=== PATIENT | female | born 2000 | race Caucasian/White ===

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

== ENCOUNTER 2021-01-06 15:53 | Outpatient (CLI) | payer OTHER, SELFPAY ==
[2021-01-06 16:57] VITALS: BP 134/73; PULSE 103
== END 2021-01-06 15:54 | disposition home or self-care (01) ==
PROVIDERS: PCP Internal Medicine; Visit Provider Obstetrics & Gynecology
DX: O36.8910 Maternal care for other specified fetal problems, first trimester, not applicable or unspecified (principal); Z3A.00 Weeks of gestation of pregnancy not specified
CPT/HCPCS: 59025

== ENCOUNTER 2021-03-14 11:46 | Observation (INO) | payer OTHER, SELFPAY ==
[2021-03-14 11:46] VITALS: BMI 41.4
[2021-03-14 12:02] VITALS: BP 143/87; PULSE 81
[2021-03-14 12:16] VITALS: BP 140/88; PULSE 81
--- NOTE | 2021-03-14 12:26 | OBADM ---
This patient, Rose Armas, admitted to the OB room OB Post 113 for observation. Patient/family oriented to hospital policies and general routines including ID bracelet, bed and alarms, visiting hours, pain management, procedures, bathroom and other care routines, personal items, smoking policy, room service/diet, and visiting hours. Patient/Family are encouraged to report perceived risks to care and to ask questions if they do not understand what they are told or what they should do.
[2021-03-14 12:29] LABS: Basophils Percent Auto 0.2 % (0.2-1.2); Eosinophils Absolute Auto 0.1 K/mm3 (0-0.3); Eosinophils Percent Auto 0.7 % (0-4.4); Hematocrit 34.8 % (37.0-47.0); Hemoglobin 11.1 g/dL (12.0-15.0); Immature Granulocyte Absolute 0.07 K/mm3 (0.00-0.031); Immature Granulocyte Percent A 0.6 % (0-0.5); Lymphocytes Absolute Auto 1.44 K/mm3 (0.9-3.2); Lymphocytes Percent Auto 13.3 % (18.3-44.2); Mean Corpuscular HGB Conc 31.9 g/dl (32-36); Mean Corpuscular Hemoglobin 24.8 pg (26-34); Mean Corpuscular Volume 77.9 fl (80-100); Mean Platelet Volume 10.2 fl (7.4-10.4); Monocytes Absolute Auto 0.6 K/mm3 (0.1-0.6); Monocytes Percent Auto 5.6 % (2.6-8.5); Neutrophils Absolute Auto 8.6 K/mm3 (1.3-6.7); Neutrophils Percent Auto 79.6 % (45.5-73.1); Platelet Count Result 254 k/mm3 (150-375); Red Blood Count 4.47 M/mm3 (4.2-5.4); Red Cell Distribution Width 14.9 % (11.5-14.5); White Blood Count 10.9 K/mm3 (4.5-10.0)
[2021-03-14 12:31] VITALS: BP 132/78; PULSE 89
[2021-03-14 12:45] LABS: Alanine Aminotransferase 16 U/L (4-35); Albumin Level 3.6 g/dL (3.7-5.6); Alkaline Phosphatase 181 U/L (45-116); Anion Gap 10 mmol/L (8-16); Aspartate Amino Transferase 19 U/L (14-36); Bilirubin,Total 0.3 mg/dL (0.2-1.3); Blood Urea Nitrogen 6 mg/dL (8-21); Calcium 8.9 mg/dL (8.9-10.7); Carbon Dioxide 18 mmol/L (22-30); Chloride 108 mmol/L (98-107); Estimated CRCL calculation 161 ml/min; Estimated Glomerular Filt Rate > 60; Glucose 91 mg/dL (65-110); Potassium 3.9 mmol/L (3.4-5.0); Sodium 136 mmol/L (134-143); Uric Acid 4.7 mg/dL (3.0-5.9)
[2021-03-14 12:46] VITALS: BP 104/68; PULSE 86
[2021-03-14 13:14] LABS: Creatinine Urine 138.9 mg/dL; Total Protein Urine Random 184 mg/dL; Ur Ttl Prot Creatinine Ratio 1.32 mg/mg (0-0.20)
[2021-03-14 13:27] LABS: Add Urine Microscopic? YES; Appearance Urine Cloudy (Clear); Bacteria Urine Trace /hpf; Bilirubin Urine Negative (Negative); Blood Urine 2+ (Negative); Color Urine Yellow (Yellow); Glucose Urine UA Negative (Negative); Ketones Urine Negative (Negative); Leukocyte Esterase Ur 1+ LEU/UL (NEGATIVE); Mucus Urine Heavy /lpf; Nitrate Urine Negative (Negative); Protein Urine 2+ mg/dL (Negative); RBC Urine >75 /hpf (0-2); Specific Grav Ur 1.021 (1.001-1.035); Squamous Epithelial Cell Urine Many /hpf (Few); Transitional Epi Cells Urine Rare /hpf (None Seen); Urobilinogen Urine Negative mg/dL (<2.0); WBC Urine 31-50 /hpf (0-3)
--- NOTE | 2021-03-14 13:56 | PC.NURSE ---
7982- spoke to Dr. Wren, headache better, reviewed urine results, orders for pt to see him within 48 hours, may discharge to home
--- NOTE | 2021-03-14 13:57 | PC.NURSE ---
1250- Dr. Wren on unit, updated on pt status, tracing reviewed, BP reviewed, labs reviewed, orders for 2 tablets of fioricet PO once now, may discharge to home if headache improves
--- NOTE | 2021-03-14 18:43 | PM.OBTRLD ---
OB - Triage/Final Diagnosis Visit Information Date of evaluation: 03/14/21 Reason for evaluation: other (headache) Comments/Additional reasons for admission: I have assessed the risk for this patient, Rose Armas, and determined that she would benefit from observation care. Evaluation Laboratory results: Laboratory Tests 03/14/21 03/14/21 03/14/21 12:14 12:14 12:14 WBC 10.9 H RBC 4.47 Hgb 11.1 L D Hct 34.8 L MCV 77.9 L MCH 24.8 L MCHC 31.9 L RDW 14.9 H Plt Count 254 MPV 10.2 Immature Gran % (Auto) 0.6 H Neut % (Auto) 79.6 H Lymph % (Auto) 13.3 L [place] % (Auto) 5.6 Eos % (Auto) 0.7 Baso % (Auto) 0.2 Lymph # (Auto) 1.44 [place] # (Auto) 0.6 Eos # (Auto) 0.1 Baso # (Auto) 0.0 Abs Immat Gran (auto) 0.07 H Absolute Neuts (auto) 8.6 H Absolute Nucleated RBC 0.0 Nucleated RBC % 0.0 Sodium 136 Potassium 3.9 Chloride 108 H Carbon Dioxide 18 L Anion Gap 10 BUN 6 L Creatinine 0.60 L Estim Creat Clear Calc 161 Estimated GFR > 60 Glucose 91 Uric Acid 4.7 Calcium 8.9 Total Bilirubin 0.3 AST 19 ALT 16 Alkaline Phosphatase 181 H Total Protein 7.0 Albumin 3.6 L Urine Color Yellow Urine Appearance Cloudy H Urine pH 7.0 Ur Specific [place] 1.021 Urine Protein 2+ H Urine Glucose (UA) Negative Urine Ketones Negative Ur Blood (Man) 2+ H Urine Nitrate Negative Urine Bilirubin Negative Urine Urobilinogen Negative Ur Leukocyte Esterase 1+ H Urine RBC >75 H Urine WBC 31-50 H Ur Squamous Epith Cells Many H Ur Transition Epith Cell Rare Urine Bacteria Trace Urine Mucus Heavy H U Random Total Protein Urine Creatinine Protein/Creat Ratio 2 03/14/21 12:14 WBC RBC Hgb Hct MCV MCH MCHC RDW Plt Count MPV Immature Gran % (Auto) Neut % (Auto) Lymph % (Auto) [place] % (Auto) Eos % (Auto) Baso % (Auto) Lymph # (Auto) [place] # (Auto) Eos # (Auto) Baso # (Auto) Abs Immat Gran (auto) Absolute Neuts (auto) Absolute Nucleated RBC Nucleated RBC % Sodium Potassium Chloride Carbon Dioxide Anion Gap BUN Creatinine Estim Creat Clear Calc Estimated GFR Glucose Uric Acid Calcium Total Bilirubin AST ALT Alkaline Phosphatase Total Protein Albumin Urine Color Urine Appearance Urine pH Ur Specific [place] Urine Protein Urine Glucose (UA) Urine Ketones Ur Blood (Man) Urine Nitrate Urine Bilirubin Urine Urobilinogen Ur Leukocyte Esterase Urine RBC Urine WBC Ur Squamous Epith Cells Ur Transition Epith Cell Urine Bacteria Urine Mucus U Random Total Protein 184 Urine Creatinine 138.9 Protein/Creat Ratio 2 1.32 H Vital signs: Vital Signs - 24 hr 03/14/21 12:02 03/14/21 12:16 03/14/21 12:31 Pulse Rate 81 81 89 Blood Pressure 143/87 H 140/88 132/78 03/14/21 12:46 Pulse Rate 86 Blood Pressure 104/68
== END 2021-03-14 14:40 | disposition home or self-care (01) ==
PROVIDERS: Admitting Provider Obstetrics & Gynecology; PCP Internal Medicine; Visit Provider Obstetrics & Gynecology
DX: O26.893 Other specified pregnancy related conditions, third trimester (principal); R51.9 Headache, unspecified; Z3A.37 37 weeks gestation of pregnancy
CPT/HCPCS: 36415; 59025; 80053; 81001; 82570; 84156; 84550; 85025; 87086; 87088; A9270; G0378; G0379

== ENCOUNTER 2021-03-17 06:00 | Inpatient (IN) | payer OTHER, SELFPAY ==
[2021-03-17] VITALS (226 sets, daily range): BP systolic 78–153; BP diastolic 36–123; PULSE 51–190; TEMP 36.1–36.8; O2SAT 76–100; BMI 41.8
[2021-03-17 06:52] LABS: Basophils Percent Auto 0.2 % (0.2-1.2); Eosinophils Absolute Auto 0.1 K/mm3 (0-0.3); Eosinophils Percent Auto 1.1 % (0-4.4); Hematocrit 34.3 % (37.0-47.0); Hemoglobin 10.7 g/dL (12.0-15.0); Immature Granulocyte Absolute 0.07 K/mm3 (0.00-0.031); Immature Granulocyte Percent A 0.8 % (0-0.5); Lymphocytes Absolute Auto 1.82 K/mm3 (0.9-3.2); Lymphocytes Percent Auto 19.9 % (18.3-44.2); Mean Corpuscular HGB Conc 31.2 g/dl (32-36); Mean Corpuscular Volume 80.1 fl (80-100); Mean Platelet Volume 10.3 fl (7.4-10.4); Monocytes Absolute Auto 0.5 K/mm3 (0.1-0.6); Monocytes Percent Auto 5.5 % (2.6-8.5); Neutrophils Absolute Auto 6.6 K/mm3 (1.3-6.7); Neutrophils Percent Auto 72.5 % (45.5-73.1); Platelet Count Result 264 k/mm3 (150-375); Red Blood Count 4.28 M/mm3 (4.2-5.4); Red Cell Distribution Width 15.2 % (11.5-14.5); White Blood Count 9.1 K/mm3 (4.5-10.0)
--- NOTE | 2021-03-17 06:52 | P.HP_ITS ---
H&P: HPI History of Present Illness Date/Time: 03/17/21 06:52 20-year-old 1 para 0 whose last menstrual period was 06/25/2020, EDC is 04/01/2021, confirmed by 10 week ultrasound presents at 39 weeks gestation for induction of labor secondary to elevated blood pressures. She is negative for group B strep. Her blood pressures have been rising and she now has 2+ protein. She had had some mild headaches but they have improved. Her diabetic screen was abnormal and 3/4 sugars on the 3hour test were abnormal. She has however had good control with diet proven by Accu-Cheks. Chief Complaint: elevated blood pressures at term and gestational diabetic con trolled by diet Review of Systems Review of Systems: All systems reviewed & are unremarkable except as noted in HPI and below PMFSH Past Medical History Medical History Depression Migraines UTI (urinary tract infection) Surgical History Surgical History No pertinent past surgical history Family History Family History Father Family history of thyroid disease Other Diabetes mellitus Family history of arthritis Family history of heart disease in male family member before age 55 Family history of kidney disease Hypertension Social History Social History Smoking status: Never smoker Second hand tobacco smoke exposure: Yes Alcohol intake: never Substance use: never Gender identity (if verbalized by the patient): Female Spiritual care concerns: No Meds Home Medications and Allergies Home Medications Medication Instructions Recorded Confirmed Type PNV no.[id number] acid 1 tablet PO DAILY 12/25/20 03/14/21 History Allergies Allergy/AdvReac Type Severity Reaction Status Date / Time No Known Allergies Allergy Unverified 07/23/19 21:53 Exam Const: General: no acute distress Eyes: General: appearance normal, both eyes and all related structures Neck: Neck: supple and no JVD Thyroid: thyroid normal Resp: Effort & Inspection: normal respiratory effort Auscultation: clear to auscultation bilaterally Cardio: Rate: regular rate Rhythm: regular rhythm GI: Inspection: non-distended GI Palp: Yes Soft to palpation, No Tenderness to palpation present (GI) and No Guarding due to palpation present (GI) Auscultation: normal bowel sounds : External Female Exam: normal external appearance Speculum Exam - Vagina: normal appearance of the vagina Speculum Exam - Cervix: Cervical os closed ( Cervix 3/50%/ -1. AROM clear. FHTs reassuring) Skin: General skin exam: no rashes or lesions noted Extrem: General: normal to inspection and no edema Psych: Mental Status: mental status grossly normal Affect: normal affect Assessment and Plan Additional Plan impression: Term term with diet-controlled gestational diabetes and elevated blood pressures Plan PIH labs will be drawn. Medical induction of labor was undertaken. Sugars will be checked. She has an epidural candidate
[2021-03-17 06:58] LABS: Glucose Point of Care 130 mg/dl (65-105)
[2021-03-17] MEDS: LACTATED RINGERS 1,000 ML 125 ML IV CONT ×2 (07:08→09:26)
[2021-03-17] MEDS: OXYTOCIN 30 UNITS/NS 500 ML 30 UNITS/500 ML BAG 6 UNITS IV CONT (07:09)
--- NOTE | 2021-03-17 07:23 | LDADM ---
This patient, Rose Armas, was admitted to Labor/Delivery/Recovery 104 on 03/17/21 at 06:00. Plans for labor, pain management and were discussed with patient. Patient/family oriented to hospital policies and general routines including ID bracelet, bed and alarms, visiting hours, pain management, procedures, bathroom and other care routines, personal items, smoking policy, room service/diet and guest tray routines, security routines, and visiting hours. Patient/Family are encouraged to report perceived risks to care and to ask questions if they do not understand what they are told or what they should do. See OBIX for further documentation.
[2021-03-17 07:49] LABS: Alanine Aminotransferase 15 U/L (4-35); Albumin Level 3.6 g/dL (3.7-5.6); Alkaline Phosphatase 161 U/L (45-116); Anion Gap 8 mmol/L (8-16); Aspartate Amino Transferase 20 U/L (14-36); Bilirubin,Total 0.5 mg/dL (0.2-1.3); Blood Urea Nitrogen 11 mg/dL (8-21); Calcium 9.3 mg/dL (8.9-10.7); Carbon Dioxide 22 mmol/L (22-30); Chloride 106 mmol/L (98-107); Estimated CRCL calculation 100 ml/min; Estimated Glomerular Filt Rate > 60; Glucose 103 mg/dL (65-110); Potassium 3.7 mmol/L (3.4-5.0); Sodium 136 mmol/L (134-143); Uric Acid 5.2 mg/dL (3.0-5.9)
--- NOTE | 2021-03-17 09:25 | WPDANESEPP ---
Anes - Eval Pre Procedure Date/Time: 03/17/21 09:25 Pre Op Diagnosis: iol Patient Data Age: 20 Gender: F Height: 1.65 m Weight: 114 kg Last Vital Signs Temp 36.3 C L 03/17/21 09:09 Pulse 85 03/17/21 09:23 BP 128/68 03/17/21 09:23 Pulse Ox 100 03/17/21 09:22 Allergies Allergy/AdvReac Type Severity Reaction Status Date / Time No Known Allergies Allergy Unverified 07/23/19 21:53 Home Medications Medication Instructions Recorded Confirmed Type PNV no.[id number] acid 1 tablet PO DAILY 12/25/20 03/17/21 History Laboratory Tests 03/17/21 03/17/21 03/17/21 06:44 06:44 06:45 WBC 9.1 K/mm3 K/mm3 (4.5-10.0) RBC 4.28 M/mm3 M/mm3 (4.2-5.4) Hgb 10.7 g/dL L g/dL (12.0-15.0) Hct 34.3 % L % (37.0-47.0) MCV 80.1 fl fl (80-100) MCH 25.0 pg L pg (26-34) MCHC 31.2 g/dl L g/dl (32-36) RDW 15.2 % H % (11.5-14.5) Plt Count 264 k/mm3 k/mm3 (150-375) MPV 10.3 fl fl (7.4-10.4) Immature Gran % (Auto) 0.8 % H % (0-0.5) Neut % (Auto) 72.5 % % (45.5-73.1) Lymph % (Auto) 19.9 % % (18.3-44.2) [place] % (Auto) 5.5 % % (2.6-8.5) Eos % (Auto) 1.1 % % (0-4.4) Baso % (Auto) 0.2 % % (0.2-1.2) Lymph # (Auto) 1.82 K/mm3 K/mm3 (0.9-3.2) [place] # (Auto) 0.5 K/mm3 K/mm3 (0.1-0.6) Eos # (Auto) 0.1 K/mm3 K/mm3 (0-0.3) Baso # (Auto) 0.0 K/mm3 K/mm3 (0.0-0.1) Abs Immat Gran (auto) 0.07 K/mm3 H K/mm3 (0.00-0.031) Absolute Neuts (auto) 6.6 K/mm3 K/mm3 (1.3-6.7) Absolute Nucleated RBC 0.0 K/mm3 K/mm3 (0.0-0.012) Nucleated RBC % 0.0 % % (0.0-0.2) Sodium Potassium Chloride Carbon Dioxide Anion Gap BUN Creatinine Estim Creat Clear Calc Estimated GFR Glucose POC Capillary Glucose Uric Acid Calcium Total Bilirubin AST ALT Alkaline Phosphatase Total Protein Albumin RPR Pending Blood Type AB Negative Antibody Screen Negative 03/17/21 03/17/21 06:53 07:15 WBC RBC Hgb Hct MCV MCH MCHC RDW Plt Count MPV Immature Gran % (Auto) Neut % (Auto) Lymph % (Auto) [place] % (Auto) Eos % (Auto) Baso % (Auto) Lymph # (Auto) [place] # (Auto) Eos # (Auto) Baso # (Auto) Abs Immat Gran (auto) Absolute Neuts (auto) Absolute Nucleated RBC Nucleated RBC % Sodium 136 mmol/L mmol/L (134-143) Potassium 3.7 mmol/L mmol/L (3.4-5.0) Chloride 106 mmol/L mmol/L (98-107) Carbon Dioxide 22 mmol/L mmol/L (22-30) Anion Gap 8 mmol/L mmol/L (8-16) BUN 11 mg/dL D mg/dL (8-21) Creatinine 0.70 mg/dL mg/dL (0.7-1.0) Estim Creat Clear Calc 100 ml/min ml/min Estimated GFR > 60 (59 - ) Glucose 103 mg/dL mg/dL (65-110) POC Capillary Glucose 130 mg/dl H mg/dl (65-105) Uric Acid 5.2 mg/dL mg/dL (3.0-5.9) Calcium 9.3 mg/dL mg/dL (8.9-10.7) Total Bilirubin 0.5 mg/dL mg/dL (0.2-1.3) AST 20 U/L U/L (14-36) ALT 15 U/L U/L (4-35) Alkaline Phosphatase 161 U/L H U/L (45-116) Total Protein 7.0 g/dL g/dL (6.3-8.6) Albumin 3.6 g/dL L g/dL (3.7-5.6) RPR Blood Type Antibody Screen Patient hx anesthesia problems: none Family hx anesthesia problems: none Results Review: All pre-operative results and documents have been reviewed as p
[2021-03-17 10:44] LABS: Glucose Point of Care 84 mg/dl (65-105)
--- NOTE | 2021-03-17 12:07 | PM.OBPNLAB ---
Pain Control Date/time seen: 03/17/21 12:07 Pain control: tolerating well and epidural Pelvic Exam Dilation (cm): 5 station: -1 Amniotic membrane status: Leaking Contractions Monitor mode: External
[2021-03-17] MEDS: ACETAMINOPHEN 500 MG TABLET 1000 MG PO (12:46)
[2021-03-17 13:30] LABS: Glucose Point of Care 75 mg/dl (65-105)
[2021-03-17] MEDS: LORATADINE 10 MG TABLET PO (13:47)
[2021-03-17 15:41] LABS: Glucose Point of Care 71 mg/dl (65-105)
--- NOTE | 2021-03-17 16:10 | PM.OBPNLAB ---
Pain Control Date/time seen: 03/17/21 16:10 Pain control: tolerating well and epidural Pelvic Exam Dilation (cm): 7 Effacement (%): 75 station: -1 Amniotic membrane status: Leaking Contractions Monitor mode: External
[2021-03-17 17:46] LABS: Glucose Point of Care 70 mg/dl (65-105)
[2021-03-17 20:07] LABS: Glucose Point of Care 67 mg/dl (65-105)
--- NOTE | 2021-03-17 21:37 | PM.OBPRVD ---
OB - Delivery Note Procedure Delivery date: 03/17/21 Procedure: mil events: Induced HTN and Labor Induction Intrapartal events: None Induction method: AROM Delivery monitor: external FHT Route of delivery: Laceration Description: None Specimen: No Quantitative Blood Loss (ml): 58 Anesthesia type: Epidural Disposition: floor Baby Date of : 03/17/21 Time of : 21:26 Weeks of gestation at delivery: 38 gender: Male Weight (pounds): 9 Weight (ounces): 1 presentation: vertex position: Right Occiput Anterior Placenta delivery description: Spontaneous score one minute: 8 score five minutes: 9
[2021-03-17] MEDS: OXYTOCIN 30 UNITS/NS 500 ML 30 UNITS/500 ML BAG 125 UNITS IV CONT (22:08)
[2021-03-17] MEDS: IBUPROFEN 600 MG TABLET PO (23:07)
[2021-03-17] MEDS: WITCH HAZEL 40 PADS 1 PAD TOPICAL (23:08)
[2021-03-17] MEDS: BENZOCAINE 20% AER SPR (*SP) 56 GM CAN 1 SPRAY TOPICAL (23:08)
[2021-03-18] VITALS (7 sets, daily range): BP systolic 128–143; BP diastolic 68–96; PULSE 83–100; RESP 16–18; TEMP 36.1–37.2; O2SAT 97–99
--- NOTE | 2021-03-18 00:25 | OBPPTRN ---
Patient transferred to post room #285 via wheelchair. Support person present. Oriented to unit, room, information board, rooming in, admission packet and security measures. Patient verbalizes understanding.
[2021-03-18 05:30] LABS: Hematocrit 32.6 % (37.0-47.0); Hemoglobin 10.3 g/dL (12.0-15.0)
--- NOTE | 2021-03-18 08:40 | WPDANLDPN2 ---
Anes-Prog Note L&D Date/Time: 03/18/21 08:40 Comfortable throughout: labor and delivery Neuraxial method: epidural Epidural/Spinal procedure site: clean & non-tender Neuro status: Neuro function grossly intact. Cardiovascular status: normal Respiratory status: normal Airway patency: baseline Mental status: baseline Post-Op hydration status: normal Vital Signs: Last Vital Signs Temp 36.1 C L 03/18/21 04:30 Pulse 86 03/18/21 04:30 Resp 18 03/18/21 04:30 BP 128/68 03/18/21 04:30 Pulse Ox 99 03/18/21 04:30 Pain score (VAS): 06/27 I/O: Intake & Output 03/17/21 03/18/21 03/18/21 23:59 07:59 15:59 Intake Total 1500 300 Output Total 93 400 Balance 1407 -100 Post-procedural complaints: none Patient feedback: Patient satisfied with anesthetic care.
--- NOTE | 2021-03-18 09:41 | PM.OBPNVD ---
OB - PN: Subj Subjective Date/time seen: 03/18/21 09:41 Patient comments: no complaints and pain well controlled baby status: doing well OB - PN: Obj Data Labs CBC & Chem 7: 03/18/21 04:47 03/17/21 07:15 Labs: Laboratory Results - last 24 hr 03/17/21 03/17/21 03/17/21 10:41 13:27 15:39 Hgb Hct POC Capillary Glucose 84 75 71 Blood Type Antibody Screen Screen Baby's Blood Type Baby's KEM Doses of RhIg Required 03/17/21 03/17/21 03/18/21 17:43 20:00 04:47 Hgb 10.3 L Hct 32.6 L POC Capillary Glucose 70 67 Blood Type Antibody Screen Screen Baby's Blood Type Baby's KEM Doses of RhIg Required 03/18/21 04:47 Hgb Hct POC Capillary Glucose Blood Type AB Negative Antibody Screen TNP Screen Negative Baby's Blood Type B pos Baby's KEM Negative Doses of RhIg Required 1 OB - PN A/P Plan day: 1 Plan: routine care Time Spent With Patient Time: Total time spent is greater than 50% in coordination of care (as documented) at patient's floor/unit and/or counseling patient: Time with patient: less than 15 minutes Review of Systems Review of Systems: All systems reviewed & are unremarkable except as noted in HPI and below Exam Const: General: no acute distress Eyes: General: appearance normal, both eyes and all related structures Neck: Neck: supple and no JVD Thyroid: thyroid normal Resp: Effort & Inspection: normal respiratory effort Auscultation: clear to auscultation bilaterally Cardio: Rate: regular rate Rhythm: regular rhythm GI: Inspection: non-distended GI Palp: Yes Soft to palpation, No Tenderness to palpation present (GI) and No Guarding due to palpation present (GI) Auscultation: normal bowel sounds : General: Yes bladder normal to palpation External Female Exam: normal external appearance Speculum Exam - Vagina: normal vaginal discharge and No vaginal bleeding Speculum Exam - Cervix: nontender Bimanual exam- vagina & uterus: bladder normal to palpation and No Cervical tenderness present OB/external & speculum: No vaginal bleeding Skin: General skin exam: no rashes or lesions noted Extrem: General: normal to inspection and no edema Psych: Mental Status: mental status grossly normal Affect: normal affect
--- NOTE | 2021-03-18 10:22 | PC.NURSE ---
Breast pump provided due to not feeding at the breast. Mom states is very sleepy at the breast and she would like to try pumping for now. Encouraged mom to call with next feeding to try to get to breast if she would like to do that. Instructions given on breast pump care and usage, pumping schedule, nipple care, and collection and storage of breast milk. Encouraged [id number], breast massage and manual expression to stimulate supply. Pumping log provided and reviewed. Assessed patient for correct flange size, placement and draw. Patient verbalizes and demonstrates understanding of instructions.
[2021-03-18 11:03] LABS: Rapid Plasma Reagin Non-Reactive (NonReactive)
[2021-03-18] MEDS: RHO(D) IMMUNE GLOBULIN 300 MCG/2 ML SYRINGE IM (13:54)
[2021-03-19] MEDS: IBUPROFEN 600 MG TABLET PO (01:20)
[2021-03-19] MEDS: TETANUS,DIPHTHERIA,AC PERTUSSIS ADULT (0.5 ML) BOOSTRIX IM (01:21)
[2021-03-19 04:40] VITALS: BP 136/84; PULSE 79; RESP 18; TEMP 36.8; O2SAT 98
--- NOTE | 2021-03-19 07:06 | PM.DS ---
DS: Admitting Diagnosis Discharge Date 03/19/2021 Admitting Diagnosis term intrauterine with gestational hypertension DS: Summary Hospital Course Hospital Course: patient was admitted for induction of labor secondary to gestational hypertension with diet-controlled gestational diabetes. Her sugars remained completely normal. Her blood pressures improved with epidural anesthesia and were normal . She spontaneously delivered a male infant which was unremarkable. Her hospital course remained unremarkable. She was up, voiding without difficulty, breast-feeding, ambulating, and generally without complaints Time Spent with Patient Time attestation: Total time spent providing and/or coordinating discharge services: Exam Const: General: no acute distress Eyes: General: appearance normal, both eyes and all related structures Neck: Neck: supple and no JVD Thyroid: thyroid normal Resp: Effort & Inspection: normal respiratory effort Auscultation: clear to auscultation bilaterally Cardio: Rate: regular rate Rhythm: regular rhythm GI: Inspection: non-distended GI Palp: Yes Soft to palpation, No Tenderness to palpation present (GI) and No Guarding due to palpation present (GI) Auscultation: normal bowel sounds : General: Yes bladder normal to palpation External Female Exam: normal external appearance Speculum Exam - Vagina: normal vaginal discharge and No vaginal bleeding Speculum Exam - Cervix: nontender Bimanual exam- vagina & uterus: bladder normal to palpation and No Cervical tenderness present OB/external & speculum: No vaginal bleeding Skin: General skin exam: no rashes or lesions noted Extrem: General: normal to inspection and no edema Psych: Mental Status: mental status grossly normal Affect: normal affect DS: Data Data Completed and Pending Labs on day of discharge: Labs from last 24 hours 03/18/21 03/17/21 04:47 06:44 RPR Non-reactive Blood Type AB Negative Antibody Screen TNP Screen Negative Baby's Blood Type B pos Baby's KEM Negative Doses of RhIg Required 1 Discharge Plan Discharge Attending physician on discharge: Jaime Wren Discharging Clinician: Jaime Wren Patient Disposition: Home, Self-Care Activity: may shower, no straining and pelvic rest Diet: heart healthy Patient Instructions: Antibiotic Form Stand Alone Forms: General Discharge Information Follow-up/Referrals: Jaime Wren MD [Physician] - Discharge Medications: Continued PNV [id number] acid [id number] mg-mcg Tablet 1 tablet PO DAILY RF: 0 Date of admission: 03/17/21 06:00 Primary Care Provider: Franck Lopez Admitting Provider: Jaime Wren Attending physician on admission: Jaime Wren Condition: Stable
--- NOTE | 2021-03-19 07:08 | PM.OBPNVD ---
OB - PN: Subj Subjective Date/time seen: 03/19/21 07:08 Patient comments: no complaints and pain well controlled baby status: doing well and nursing well OB - PN: Obj Data Labs CBC & Chem 7: 03/18/21 04:47 03/17/21 07:15 Labs: Laboratory Results - last 24 hr 03/17/21 03/18/21 06:44 04:47 RPR Non-reactive Blood Type AB Negative Antibody Screen TNP Screen Negative Baby's Blood Type B pos Baby's KEM Negative Doses of RhIg Required 1 OB - PN A/P Plan day: 2 Plan: routine care, discharge home and follow up 6 weeks Time Spent With Patient Time: Total time spent is greater than 50% in coordination of care (as documented) at patient's floor/unit and/or counseling patient: Time with patient: less than 15 minutes Review of Systems Review of Systems: All systems reviewed & are unremarkable except as noted in HPI and below Exam Const: General: no acute distress Eyes: General: appearance normal, both eyes and all related structures Neck: Neck: supple and no JVD Thyroid: thyroid normal Resp: Effort & Inspection: normal respiratory effort Auscultation: clear to auscultation bilaterally Cardio: Rate: regular rate Rhythm: regular rhythm GI: Inspection: non-distended GI Palp: Yes Soft to palpation, No Tenderness to palpation present (GI) and No Guarding due to palpation present (GI) Auscultation: normal bowel sounds : General: Yes bladder normal to palpation External Female Exam: normal external appearance Speculum Exam - Vagina: normal vaginal discharge and No vaginal bleeding Speculum Exam - Cervix: nontender Bimanual exam- vagina & uterus: bladder normal to palpation and No Cervical tenderness present OB/external & speculum: No vaginal bleeding Skin: General skin exam: no rashes or lesions noted Extrem: General: normal to inspection and no edema Psych: Mental Status: mental status grossly normal Affect: normal affect
[2021-03-19 08:05] VITALS: BP 120/78; PULSE 73; RESP 16; TEMP 36.8; O2SAT 98
[2021-03-21 10:11] VITALS: BP 128/68; PULSE 86; RESP 20; TEMP 36.9; O2SAT 100
== END 2021-03-19 12:07 | disposition home or self-care (01) | DRG 560 ==
LOC: ANHLDR 06:04 → ANHOB2 03-18 00:45
PROVIDERS: Admitting Provider Obstetrics & Gynecology; PCP Internal Medicine; Visit Provider Obstetrics & Gynecology
DX: O13.4 Gestational [pregnancy-induced] hypertension without significant proteinuria, complicating childbirth (principal); O99.214 Obesity complicating childbirth; E66.01 Morbid (severe) obesity due to excess calories; O76 Abnormality in fetal heart rate and rhythm complicating labor and delivery; O24.420 Gestational diabetes mellitus in childbirth, diet controlled; Z3A.39 39 weeks gestation of pregnancy; Z37.0 Single live birth; Z3A.38 38 weeks gestation of pregnancy
CPT/HCPCS: 36415; 80053; 82948; 84550; 85014; 85018; 85025; 85461; 86592; 86850; 86900; 86901; 90384; 90715; A9270; J2590; J2790; J2795; J7120

== ENCOUNTER 2021-05-19 10:55 | Emergency (ER) | payer OTHER, SELFPAY ==
[2021-05-19 11:09] VITALS: BP 127/82; PULSE 90; RESP 16; TEMP 36.9; O2SAT 99
--- NOTE | 2021-05-19 11:35 | ED.URI ---
HPI - URI/Sore Throat General Chief Complaint: Upper Respiratory Infection Stated Complaint: Sore Throat Time Seen by Provider: 05/19/21 11:35 Source: patient and RN notes reviewed Mode of arrival: ambulatory Limitations: no limitations History of Present Illness HPI Narrative: 20-year-old female presents to the [facility] with complaints of a sore throat. Patient states that she has had a runny nose and a mild cough for 3 to 4 days. Sore throat just started today. States she is taken ibuprofen for symptoms. States that she has felt feverish but when she checked her temperature it was normal. Denies chest pain or abdominal pain. No nausea, vomiting or diarrhea. Related Data Home Medications Medication Instructions Recorded Confirmed No Home Medications 05/20/21 05/20/21 Allergies Allergy/AdvReac Type Severity Reaction Status Date / Time No Known Allergies Allergy Unverified 07/23/19 21:53 Review of Systems Review of Systems: All systems reviewed & are unremarkable except as noted in HPI and below Constitutional: Constitutional: Reports no additional constitutional complaints, Denies chills and Denies fever(s) Eyes: Eyes: Reports no additional eye complaints, Denies change in vision and Denies photophobia ENT: Reports as per HPI, Reports nasal congestion and Reports sore throat Comments: Rhinorrhea Cardiovascular: Cardiovascular: Reports no additional cardiovascular complaints and Denies chest pain Respiratory: Respiratory: Reports no additional respiratory complaints, Denies cough and Denies dyspnea Gastrointestinal: Gastrointestinal: Reports no additional gastrointestinal complaints Musculoskeletal: Musculoskeletal: Reports no additional musculoskeletal complaints Integumentary/Breasts: Skin/Breast: Reports system reviewed and no additional complaints, except as docu, Denies erythema and Denies rash Neurologic: Reports system reviewed and no additional complaints, except as documented Psychiatric: Psychiatric: Reports no additional psychiatric complaints Allergic/Immunologic: Allergic/Immunologic: Reports no additional allergic/immunologic complaints [facility] Past Medical History Medical History Depression Diabetes in HTN in , chronic Migraines UTI (urinary tract infection) Surgical History Surgical History No pertinent past surgical history Family History Family History Father Family history of thyroid disease Other Diabetes mellitus Family history of arthritis Family history of heart disease in male family member before age 55 Family history of kidney disease Hypertension Social History Social History Smoking status: Never smoker Second hand tobacco smoke exposure: Yes Alcohol intake: never Substance use: never Gender identity (if verbalized by the patient): Female Spiritual care concerns: No Comments At the time of my signature, I reviewed and agree with the nursing past medical, surgical, social, and family history. There is no relevant family history pertinent to the patient complaint. Exam Const: General: healthy appearing, no acute distress and alert Nutritional Appearance: well nourished and obese morbidly obese Orientation/consciousness: patient oriented x3 Limitations: no limitations HENMT: Head: normal to inspection Ears: external ears normal, TM's normal bilaterally and EAC's normal General nose exam: Normal external nose present and Normal nasal mucous membranes and turbinates present Throat: uvula midline and postnasal drainage Eyes: Conjunctivae: conjunctivae normal Pupils: Equal, round and reactive pupils present Neck: Neck: normal visual inspection, no lymphadenopathy and no meningeal signs Chest: Chest
== END 2021-05-19 12:27 | disposition home or self-care (01) ==
PROVIDERS: Emergency Provider Nurse Practitioner; PCP Internal Medicine
DX: J02.9 Acute pharyngitis, unspecified (principal); E11.9 Type 2 diabetes mellitus without complications; I10 Essential (primary) hypertension
CPT/HCPCS: 87081; 87880; 99213; G0463

== ENCOUNTER 2021-12-08 10:26 | Outpatient (CLI) | payer OTHER, SELFPAY ==
[2021-12-08 10:45] LABS: Basophils Percent Auto 0.2 % (0.2-1.2); Eosinophils Percent Auto 0.3 % (0-4.4); Hematocrit 42.6 % (37.0-47.0); Hemoglobin 14.1 g/dL (12.0-15.0); Immature Granulocyte Absolute 0.03 K/mm3 (0.00-0.031); Immature Granulocyte Percent A 0.2 % (0-0.5); Lymphocytes Percent Auto 11.6 % (18.3-44.2); Mean Corpuscular HGB Conc 33.1 g/dl (32-36); Mean Corpuscular Hemoglobin 26.4 pg (26-34); Mean Corpuscular Volume 79.6 fl (80-100); Mean Platelet Volume 9.1 fl (7.4-10.4); Monocytes Absolute Auto 0.7 K/mm3 (0.1-0.6); Monocytes Percent Auto 5.5 % (2.6-8.5); Neutrophils Absolute Auto 9.9 K/mm3 (1.3-6.7); Neutrophils Percent Auto 82.2 % (45.5-73.1); Platelet Count Result 320 k/mm3 (150-375); Red Blood Count 5.35 M/mm3 (4.2-5.4); Red Cell Distribution Width 13.2 % (11.5-14.5); White Blood Count 12.1 K/mm3 (4.5-10.0)
[2021-12-08 10:51] LABS: Appearance Urine Clear (Clear); Bilirubin Urine Negative (Negative); Blood Urine 2+ (Negative); Color Urine Yellow (Yellow); Glucose Urine UA Negative (Negative); Ketones Urine Negative (Negative); Leukocyte Esterase Ur Negative LEU/UL (Negative); Nitrate Urine Negative (Negative); Protein Urine Negative (Negative); Specific Grav Ur 1.025 (1.001-1.035); Urobilinogen Urine 0.2 mg/dL (<2.0)
[2021-12-08 10:55] LABS: Alanine Aminotransferase 28 U/L (6-35); Albumin Level 4.8 g/dL (3.5-5.1); Alkaline Phosphatase 77 U/L (38-126); Anion Gap 8 mmol/L (8-16); Aspartate Amino Transferase 20 U/L (14-36); Bilirubin,Total 0.5 mg/dL (0.2-1.3); Blood Urea Nitrogen 12 mg/dL (7-17); Carbon Dioxide 26 mmol/L (22-30); Chloride 106 mmol/L (98-107); Cholesterol 146 mg/dL (0-200); Estimated Glomerular Filt Rate > 60; Glucose 89 mg/dL (65-110); HDL Direct 42 mg/dL; Potassium 4.2 mmol/L (3.4-5.0); Sodium 140 mmol/L (137-145); Triglycerides 114 mg/dL (<150)
[2021-12-08 10:59] LABS: Bacteria Urine Trace /hpf; Mucus Urine Rare /lpf; RBC Urine 0-2 /hpf (0-2); Squamous Epithelial Cell Urine Few /hpf (Few)
[2021-12-08 11:02] LABS: Add Urine Microscopic? YES
[2021-12-08 11:06] LABS: LDL Cholesterol Direct 72 mg/dL
[2021-12-08 11:09] LABS: Iron 37 ug/dL (37-170)
[2021-12-08 11:18] LABS: Percent Iron Saturation 9 % (20-50)
== END 2021-12-08 10:27 | disposition home or self-care (01) ==
LOC: ANHLAB 10:28
PROVIDERS: PCP Internal Medicine; Visit Provider Clinical Nurse Specialist
DX: R42 Dizziness and giddiness (principal); Z13.220 Encounter for screening for lipoid disorders; R35.89 Other polyuria; D64.9 Anemia, unspecified; R73.9 Hyperglycemia, unspecified
CPT/HCPCS: 36415; 80053; 80061; 81001; 82728; 83036; 83540; 83550; 84443; 85025

== ENCOUNTER 2022-11-13 11:34 | Emergency (ER) | payer OTHER, SELFPAY ==
[2022-11-13 11:45] VITALS: BP 123/95; PULSE 98; RESP 16; TEMP 36.5; O2SAT 98
--- NOTE | 2022-11-13 11:45 | ED.EYEPROB ---
HPI - Eye Problem General Chief complaint: Eye Problems Stated complaint: EYE REDNESS Source: patient, family and RN notes reviewed History of Present Illness HPI Narrative: 22-year-old female presents urgent care with left eye irritation and drainage. Patient states her son was diagnosed with pinkeye and an ear infection earlier this week and believes she contracted the pinkeye from him. Patient states she woke up this morning with matting to her left eye. Patient reports irritation to her lower lid. Denies any visual disturbance Or eye pain. Patient does report having a fever last couple days the slight headache. Denies any chest pain, shortness of breath, sore throat, ear pain, vomiting, or diarrhea. Related Data Allergies Allergy/AdvReac Type Severity Reaction Status Date / Time No Known Allergies Allergy Unverified 12/08/21 09:02 Review of Systems Review of Systems: CONSTITUTIONAL: Denies fever, chills, or sweats. EYES: The left eye drainage and irritation ENT: Denies otalgia and sore throat CARDIOVASCULAR: Denies chest pain, palpitations, or edema. RESPIRATORY: Denies cough or dyspnea. GASTROINTESTINAL: Denies abdominal pain, nausea, vomiting, or diarrhea. GENITOURINARY: Denies dysuria or hematuria. SKIN: Denies rash or itching. MUSCULOSKELETAL: Denies back pain, joint pain, or myalgia. NEUROLOGIC: Denies headache, numbness, or weakness. Pertinent positives per HPI. [facility] Past Medical History Medical History Depression Diabetes in HTN in , chronic Migraines UTI (urinary tract infection) Surgical History Surgical History No pertinent past surgical history Family History Family History Father Family history of thyroid disease Other Diabetes mellitus Family history of arthritis Family history of heart disease in male family member before age 55 Family history of kidney disease Hypertension Social History Social History Smoking status: Never smoker Second hand tobacco smoke exposure: Yes Alcohol intake: never Substance use: never Gender identity (if verbalized by the patient): Female Spiritual care concerns: No Comments At the time of my signature, I reviewed and agree with the nursing past medical, surgical, social, and family history. There is no relevant family history pertinent to the patient complaint. Exam Narrative: GENERAL: This is a well-nourished, well-developed patient, in no apparent distress. HEAD: normocephalic, atraumatic. EYES: PERRL. left sclera mildly erythemic. Left lower conjunctivae noted to be injected with dry drainage the lashes. EARS: External ears normal, auditory canals clear and without drainage, TMs normal without perforation. Hearing grossly intact. NOSE: External nose normal with no obvious nasal discharge, nares without redness, no rhinorrhea. THROAT: Mucous membranes moist, posterior pharynx clear. NECK: Neck supple, non-tender without lymphadenopathy, masses or thyromegaly. CARDIOVASCULAR: Regular rate. RESPIRATORY: no respiratory distress SKIN: warm, intact with no suspicious lesions or rash, good texture and turgor. NEURO: awake, alert, and oriented to person, place and time. There were no obvious focal neurologic abnormalities. Course Course Level of Care: Express Care Visit Vital Signs Vital signs: Reviewed MDM - Eye Problem MDM Narrative Medical decision making narrative: Your exam today shows Conjunctivitis, You have been given a prescription for eye drops. Use the eye drops as instructed. If you are not better in two (2) days, you need to follow up with an mixing and molding machine operator. Do not rub the eye or put anything else in the eye, this can cause abrasions (scratches) on the eye o
== END 2022-11-13 11:59 | disposition home or self-care (01) ==
PROVIDERS: Emergency Provider Nurse Practitioner Family; PCP Internal Medicine
DX: H10.9 Unspecified conjunctivitis (principal)
CPT/HCPCS: 99213; G0463

== ENCOUNTER 2023-02-12 17:54 | Emergency (ER) | payer OTHER, SELFPAY ==
[2023-02-12 18:06] VITALS: BP 118/81; PULSE 87; RESP 16; TEMP 36.4; O2SAT 97
--- NOTE | 2023-02-12 18:10 | ED.GENADULT ---
HPI - General Adult General Chief complaint: Extremity Injury, Upper Stated complaint: Split right hand Time Seen by Provider: 02/12/23 18:10 Source: patient, RN notes reviewed and old records reviewed Mode of arrival: ambulatory Limitations: no limitations History of Present Illness HPI narrative: 22-year-old female presents to the [facility] with complaints of a laceration to the lateral aspect right hand at the MCP 5th finger. Bleeding controlled States that she was cleaning a glass when it broke in her hand. Mom and patient reports she is up-to-date on Tdap, believes it was 2 years ago Per medical record Tdap 03/19/21 Onset (ago): hour(s) (1) Treatments prior to arrival: none Related Data Home Medications Medication Instructions Recorded Confirmed No Home Medications 02/12/23 02/12/23 Allergies Allergy/AdvReac Type Severity Reaction Status Date / Time No Known Allergies Allergy Verified 02/12/23 18:19 Review of Systems Review of Systems: All systems reviewed & are unremarkable except as noted in HPI and below Constitutional: Constitutional: Reports no additional constitutional complaints Eyes: Eyes: Reports no additional eye complaints ENT: Reports system reviewed and no additional complaints, except as documented Cardiovascular: Cardiovascular: Reports no additional cardiovascular complaints, Denies chest pain and Denies dyspnea Respiratory: Respiratory: Reports no additional respiratory complaints, Denies chest congestion, Denies cough and Denies dyspnea Gastrointestinal: Gastrointestinal: Reports no additional gastrointestinal complaints, Denies abdominal pain, Denies nausea and Denies vomiting Musculoskeletal: Musculoskeletal: Reports no additional musculoskeletal complaints Integumentary/Breasts: Skin/Breast: Reports as per HPI and Reports wounds Neurologic: Reports system reviewed and no additional complaints, except as documented Psychiatric: Psychiatric: Reports no additional psychiatric complaints Allergic/Immunologic: Allergic/Immunologic: Reports no additional allergic/immunologic complaints [facility] Past Medical History Medical History Depression Diabetes in HTN in , chronic Migraines UTI (urinary tract infection) Surgical History Surgical History No pertinent past surgical history Family History Family History Father Family history of thyroid disease Other Diabetes mellitus Family history of arthritis Family history of heart disease in male family member before age 55 Family history of kidney disease Hypertension Social History Social History Smoking status: Never smoker Second hand tobacco smoke exposure: Yes Alcohol intake: never Substance use: never Gender identity (if verbalized by the patient): Female Spiritual care concerns: No Comments At the time of my signature, I reviewed and agree with the nursing past medical, surgical, social, and family history. There is no relevant family history pertinent to the patient complaint. Exam Const: General: cooperative, healthy appearing, comfortable, no acute distress, well developed, alert and well nourished Nutritional Appearance: well nourished Orientation/consciousness: patient oriented x3 Limitations: no limitations HENMT: Head: normal to inspection Ears: hearing grossly normal bilaterally and external ears normal Face/Nose/Sinus: Normal external nose present, Normal nares present, Normal nasal mucous membranes and turbinates present and normal facial exam Face and sinus: normal facial exam Mouth: Yes Normal oral and palatal mucosa present, Yes lip normal and Yes moist mucous membranes Throat: posterior oropharynx normal and uvula midline Eyes: General: appearance n
== END 2023-02-12 18:46 | disposition home or self-care (01) ==
PROVIDERS: Emergency Provider Nurse Practitioner; PCP Internal Medicine
DX: S61.411A Laceration without foreign body of right hand, initial encounter (principal); W25.XXXA Contact with sharp glass, initial encounter
CPT/HCPCS: 12001; 99212; G0463

== ENCOUNTER 2024-03-31 08:57 | Emergency (ER) | payer BC, SELFPAY ==
[2024-03-31 09:07] VITALS: BP 119/62; PULSE 95; RESP 18; TEMP 36.7; O2SAT 98
--- NOTE | 2024-03-31 09:36 | ED.URI ---
HPI - URI/Sore Throat General Chief Complaint: Upper Respiratory Infection Stated Complaint: Fever/Bodyaches Time Seen by Provider: 03/31/24 09:26 Source: patient and RN notes reviewed Mode of arrival: ambulatory Limitations: no limitations History of Present Illness HPI Narrative: Patient presents today complaining of subjective fever, body aches, chills, sweats, mild cough since yesterday. Denies congestion, rhinorrhea, ear pain, sore throat. She has been taking ibuprofen which has provided some relief. No history of asthma or COPD. She does not smoke cigarettes or vape. She occasionally smokes marijuana. Related Data Home Medications Medication Instructions Recorded Confirmed No Home Medications 02/12/23 03/31/24 Allergies Allergy/AdvReac Type Severity Reaction Status Date / Time No Known Allergies Allergy Verified 03/31/24 09:16 Review of Systems Review of Systems: CONSTITUTIONAL: + subjective fever, chills,, body aches EYES: Denies visual changes, redness, or discharge. ENT: Denies rhinorrhea, congestion, sore throat, or otalgia. CARDIOVASCULAR: Denies chest pain, palpitations, or edema. RESPIRATORY: Denies dyspnea.+ cough GASTROINTESTINAL: Denies abdominal pain, nausea, vomiting, or diarrhea. GENITOURINARY: Denies dysuria or hematuria. SKIN: Denies rash, itching, or wounds. MUSCULOSKELETAL: Denies back pain, joint pain, or myalgia. NEUROLOGIC: Denies headache, numbness, tingling, or weakness. PSYCH: Denies depression or anxiety. [facility] Past Medical History Medical History Depression Diabetes in HTN in , chronic Migraines UTI (urinary tract infection) Surgical History Surgical History No pertinent past surgical history Family History Family History Father Family history of thyroid disease Other Diabetes mellitus Family history of arthritis Family history of heart disease in male family member before age 55 Family history of kidney disease Hypertension Social History Social History Smoking status: Never smoker Second hand tobacco smoke exposure: Yes Alcohol intake: never Substance use: never Gender identity (if verbalized by the patient): Female Spiritual care concerns: No Comments At time of signature, I have reviewed and agree with nursing past medical, surgical, social and family history unless otherwise noted. Please see nursing chart for further information. There is no relevant family history pertinent to the presenting complaint Exam Narrative: GENERAL: Mildly ill-appearing, well-nourished, and in no acute distress. HEAD: Normocephalic, atraumatic. EYES: EOMI. No redness or drainage. Conjunctivae normal. ENT: Mucous membranes pink and moist. Nares clear. No rhinorrhea. TMs normal bilaterally. Throat normal. Uvula midline. NECK: Normal AROM. Supple. No lymphadenopathy. CHEST: No respiratory distress. Clear to auscultation. HEART: Regular rate and rhythm. No murmur appreciated. EXTREMITIES: Normal range of motion. No edema. SKIN: Warm, dry, no rash. Capillary refill normal. Normal skin turgor. NEURO: No focal deficits. Alert and oriented x3. Gait steady. PSYCH: Normal affect. No signs of depression or anxiety. Course Course Level of Care: Express Care Visit Vital Signs Vital signs: Vital Signs Temperature 98.0 F 03/31/24 09:07 Pulse Rate 95 03/31/24 09:07 Respiratory Rate 18 03/31/24 09:07 Blood Pressure 119/62 03/31/24 09:07 Pulse Oximetry 98 03/31/24 09:07 Oxygen Delivery Room Air 03/31/24 09:07 Temperature 98.0 F 03/31/24 09:07 Pulse Rate 95 03/31/24 09:07 Respiratory Rate 18 03/31/24 09:07 Blood Pressure 119/62 03/31/24 09:07 P
[2024-03-31 09:41] LABS: EDCOVIDSCREEN Negative (Negative); EDINFLUASCREEN Negative (Negative); EDINFLUBSCREEN Negative (Negative)
== END 2024-03-31 09:47 | disposition home or self-care (01) ==
PROVIDERS: Emergency Provider Nurse Practitioner; PCP Internal Medicine
DX: B34.9 Viral infection, unspecified (principal); Z20.822 Contact with and (suspected) exposure to COVID-19; F12.90 Cannabis use, unspecified, uncomplicated
CPT/HCPCS: 87426; 87804; 99213; G0463